=== PATIENT | female | born 2000 | race Caucasian/White ===

== ENCOUNTER 2021-04-23 13:02 | Emergency (ER) | payer OTHER ==
[2021-04-23 13:06] VITALS: BP 117/78; PULSE 70; RESP 16; TEMP 97.9
--- NOTE | 2021-04-23 14:21 | ED ---
Upper Extremity HPI - General Chief Complaint: Extremity Injury, Upper Stated Complaint: [facility] - finger injury Time Seen by Provider: 04/23/21 13:09 Source: patient Mode of arrival: ambulatory Limitations: no limitations - History of Present Illness Initial Comments: Patient is a 21-year-old female presenting to the emergency Department with complaints of an injury to her right middle finger that happened yesterday at work. She states she was using a mallet when it slipped and she hit the outside part of her right middle finger on a cabinet. She continued to have some pain and swelling and wanted x-ray today. She denies any previous injuries. No further complaints. - Related Data Allergies Allergy/AdvReac Type Severity Reaction Status Date / Time No Known Allergies Allergy Verified 04/23/21 13:05 Review of Systems ROS Statement: Those systems with pertinent positive or pertinent negative responses have been documented in the HPI. ROS Other: All systems not noted in ROS Statement are negative. Past Medical History Past Medical History: No Reported History History of Any Multi-Drug Resistant Organisms: None Reported Past Surgical History: No Surgical Hx Reported Smoking Status: Never smoker Past Alcohol Use History: None Reported Past Drug Use History: None Reported General Exam - General Exam Comments Initial Comments: GENERAL: Patient is well-developed and well-nourished. Patient is nontoxic and in no acute distress. HEAD: Atraumatic, normocephalic. EYES: Pupils equal round and reactive to light, extraocular movements intact, sclera anicteric, conjunctiva are normal. Eyelids were unremarkable. LUNGS: Unlabored respirations. Breath sounds clear to auscultation bilaterally and equal. No wheezes rales or rhonchi. HEART: Regular rate and rhythm without murmurs, rubs or gallops. MUSCULOSKELETAL: She has some mild pain with palpation of the outside of the right middle finger, she has full finger range of motion, very mild swelling present. No clubbing or cyanosis. PSYCH: Normal mood, normal affect. SKIN: Warm, Dry, normal turgor, no rashes or lesions noted. Limitations: no limitations Course Vital Signs 04/23/21 13:03 Temperature 97.9 F Pulse Rate 70 Respiratory 16 Rate Blood Pressure 117/78 O2 Sat by Pulse 99 Oximetry Medical Decision Making - Medical Decision Making Patient is a 21-year-old female here with an injury to her right middle finger yesterday and while at work. X-rays reveal no acute fractures dislocations. This most likely just a contusion. Recommended ice to the area. She is stable for discharge. Disposition Clinical Impression: Contusion of right middle finger Disposition: HOME SELF-CARE Condition: Stable Instructions (If sedation given, give patient instructions): Contusion in Adults (ED) Additional Instructions: Please return to the Emergency Department if symptoms worsen or any other concerns. Is patient prescribed a controlled substance at d/c from ED?: No Referrals: None,Stated [Primary Care Provider] - 1-2 days Time of Disposition: 14:58
--- NOTE | 2021-04-23 14:45 | XR ---
EXAMINATION TYPE: XR finger RT DATE OF EXAM: 04/23/2021 COMPARISON: NONE HISTORY: Pain at third digit after injury. Contusion yesterday. TECHNIQUE: AP, oblique, and lateral coned-down views of the third digit of the right hand obtained FINDINGS: No acute fracture. No dislocation. Joint spaces and alignment are normal. Normal mineraliza tion. No significant soft tissue swelling. IMPRESSION: No acute fracture or dislocation.
== END 2021-04-23 15:06 | disposition home or self-care (01) ==
LOC: EC 13:02
DX: S60.031A Contusion of right middle finger without damage to nail, initial encounter (principal); W22.09XA Striking against other stationary object, initial encounter; Y99.0 Civilian activity done for income or pay
CPT/HCPCS: 99283